=== PATIENT | female | born 1980 | race Caucasian/White ===

== ENCOUNTER 2017-01-25 14:35 | Emergency (ER) | payer BC ==
[2017-01-25 15:11] VITALS: RESP 18
[2017-01-25] MEDS ORDERED: SODIUM CHLORIDE 0.9% 1,000 ML IV STA (16:31)
--- NOTE | 2017-01-25 16:42 | ED ---
General Adult HPI - General Chief complaint: Headache Stated complaint: head pain/blurry vision Time Seen by Provider: 01/25/17 16:18 Source: patient, RN notes reviewed Mode of arrival: wheelchair Limitations: no limitations - History of Present Illness Initial comments: 36-year-old female presents emergency Department with a chief complaint of left- sided headache. Patient states she chronically gets about 2 or 3 headaches a week. Patient states today however she developed a headache more to her left side which is not typical of her headaches. Patient states left-sided left- sided face. Almost swollen. She noticed that there is blurred vision to her left eye. Patient states happened and lasted for a few hours and not slowly improving. Patient states her chest pressure she felt like her hearing was impaired. Patient states that she now is feeling better. Patient has been states she is otherwise acting normal he did not note any facial droop or any weakness she states that if her son tried to touch her face or anything with sensitivity later sound would make her headache worse. Patient denies any recent fever, chills, shortness of breath, chest pain, back pain, abdominal pain , nausea vomiting, numbness or tingling, dysuria or hematuria, constipation or diarrhea, or any other current symptoms. - Related Data Home Medications Medication Instructions Recorded Confirmed Escitalopram [Lexapro] 20 mg PO DAILY 01/25/17 01/25/17 buPROPion HCL [Wellbutrin Sr] 100 mg PO DAILY 01/25/17 01/25/17 Allergies Allergy/AdvReac Type Severity Reaction Status Date / Time No Known Allergies Allergy Verified 01/25/17 15:11 Review of Systems ROS Statement: Those systems with pertinent positive or pertinent negative responses have been documented in the HPI. ROS Other: All systems not noted in ROS Statement are negative. Past Medical History Past Medical History: No Reported History History of Any Multi-Drug Resistant Organisms: None Reported Past Surgical History: No Surgical Hx Reported Past Anesthesia/Blood Transfusion Reactions: No Reported Reaction Past Psychological History: Depression Smoking Status: Never smoker Past Alcohol Use History: None Reported Past Drug Use History: None Reported General Exam - General Exam Comments Initial Comments: General: The patient is awake and alert, in no distress, and does not appear acutely ill. Eye: Pupils are equal, round and reactive to light, extra-ocular movements are intact; there is normal conjunctiva bilaterally. No signs of icterus. Ears, nose, mouth and throat: There are moist mucous membranes. Neck: The neck is supple, there is no tenderness. Cardiovascular: There is a regular rate and rhythm. No murmur, rub or gallop is appreciated. Respiratory: Lungs are clear to auscultation, respirations are non-labored, breath sounds are equal. No wheezes, stridor, rales, or rhonchi. Gastrointestinal: Soft, non-distended, non-tender abdomen without masses or organomegaly noted. There is no rebound or guarding present. No CVA tenderness. Bowel sounds are unremarkable. Back: There is no tenderness to palpation in the midline. There is no obvious deformity. No rashes noted. Musculoskeletal: Normal ROM, no tenderness, There is no pedal edema. There is no calf tenderness or swelling. Sensation intact. Pulses equal bilaterally 2+. Neurological: CN II-XII intact, There are no obvious motor or sensory deficits. Coordination appears grossly intact. Speech is normal. Skin: Skin is warm and dry and no rashes or lesions are noted. Psychiatric: Cooperative, appropriate mood & affect, normal judgment. Limitations: no limitations Course Vital Signs 01/25/17 01/25/17 01/25/17 15:10 17:03 18:10 Temperature 98.6 F 98.8 F Pulse Rate 69 70 68 Respiratory 18 18 18 Rate Blood Pressure 145/92 168/86 144/80 O2 Sat by Pulse 99 98 98 Oximetry Medical Decision Making - Medical Decision Making 36-year-old female presents emergency Department chief complaint of headache. At this time patient's laboratory is reviewed as well as CAT scan. At this time patient's headache has resolved. This time patient's symptoms are very consistent with an. At this time we discussed continued follow-up we discussed that she needs neurologist. We did discuss return parameters and all the patient's questions. They stated the Km they are negative plan. All questions have been answered. They will be discharged. - Lab Data Result diagrams: 01/25/17 16:55 01/25/17 16:55 Lab Results 01/25/17 01/25/17 01/25/17 Range/Units 16:55 16:55 16:55 WBC 11.8 H (3.8-10.6) k/uL RBC 4.80 (3.80-5.40) m/uL Hgb 14.3 (11.4-16.0) gm/dL Hct 41.5 (34.0-46.0) % MCV 86.5 (80.0-100.0) fL MCH 29.7 (25.0-35.0) pg MCHC 34.4 (31.0-37.0) g/dL RDW 13.3 (11.5-15.5) % Plt Count 251 (150-450) k/uL Neutrophils % 58 % Lymphocytes % 33 % Monocytes % 5 % Eosinophils % 2 % Basophils % 1 % Neutrophils # 6.8 (1.3-7.7) k/uL Lymphocytes # 3.9 (1.0-4.8) k/uL Monocytes # 0.6 (0-1.0) k/uL Eosinophils # 0.2 (0-0.7) k/uL Basophils # 0.1 (0-0.2) k/uL Sodium 140 (137-145) mmol/L Potassium 4.0 (3.5-5.1) mmol/L Chloride 105 (98-107) mmol/L Carbon Dioxide 24 (22-30) mmol/L Anion Gap 11 mmol/L BUN 8 (7-17) mg/dL Creatinine 0.74 (0.52-1.04) mg/dL Est GFR (MDRD) Af Amer >60 (>60 ml/min/1.73 sqM) Est GFR (MDRD) Non-Af >60 (>60 ml/min/1.73 sqM) Glucose 82 (74-99) mg/dL Calcium 9.6 (8.4-10.2) mg/dL Total Bilirubin 0.6 (0.2-1.3) mg/dL AST 16 (14-36) U/L ALT 19 (9-52) U/L Alkaline Phosphatase 95 (38-126) U/L Total Protein 7.0 (6.3-8.2) g/dL Albumin 4.4 (3.5-5.0) g/dL Urine Color Yellow Urine Appearance Clear (Clear) Urine pH 6.0 (5.0-8.0) Ur Specific [place] 1.012 (1.001-1.035) Urine Protein Negative (Negative) Urine Glucose (UA) Negative (Negative) Urine Ketones Negative (Negative) Urine Blood Negative (Negative) Urine Nitrite Negative (Negative) Urine Bilirubin Negative (Negative) Urine Urobilinogen <2.0 (<2.0) mg/dL Ur Leukocyte Esterase Negative (Negative) Urine HCG, Qual (Not Detectd) Urine Opiates Screen Not Detected (NotDetected) Ur Oxycodone Screen Not Detected (NotDetected) Urine Methadone Screen Not Detected (NotDetected) Ur Propoxyphene Screen Not Detected (NotDetected) Ur Barbiturates Screen Not Detected (NotDetected) U Tricyclic Antidepress Not Detected (NotDetected) Ur Phencyclidine Scrn Not Detected (NotDetected) Ur Amphetamines Screen Not Detected (NotDetected) U Methamphetamines Scrn Not Detected (NotDetected) U Benzodiazepines Scrn Not Detected (NotDetected) Urine Cocaine Screen Not Detected (NotDetected) U Marijuana (THC) Screen Not Detected (NotDetected) 01/25/17 Range/Units 16:55 WBC (3.8-10.6) k/uL RBC (3.80-5.40) m/uL Hgb (11.4-16.0) gm/dL Hct (34.0-46.0) % MCV (80.0-100.0) fL MCH (25.0-35.0) pg MCHC (31.0-37.0) g/dL RDW (11.5-15.5) % Plt Count (150-450) k/uL Neutrophils % % Lymphocytes % % Monocytes % % Eosinophils % % Basophils % % Neutrophils # (1.3-7.7) k/uL Lymphocytes # (1.0-4.8) k/uL Monocytes # (0-1.0) k/uL Eosinophils # (0-0.7) k/uL Basophils # (0-0.2) k/uL Sodium (137-145) mmol/L Potassium (3.5-5.1) mmol/L Chloride (98-107) mmol/L Carbon Dioxide (22-30) mmol/L Anion Gap mmol/L BUN (7-17) mg/dL Creatinine (0.52-1.04) mg/dL Est GFR (MDRD) Af Amer (>60 ml/min/1.73 sqM) Est GFR (MDRD) Non-Af (>60 ml/min/1.73 sqM) Glucose (74-99) mg/dL Calcium (8.4-10.2) mg/dL Total Bilirubin (0.2-1.3) mg/dL AST (14-36) U/L ALT (9-52) U/L Alkaline Phosphatase (38-126) U/L Total Protein (6.3-8.2) g/dL Albumin (3.5-5.0) g/dL Urine Color Urine Appearance (Clear) Urine pH (5.0-8.0) Ur Specific [place] (1.001-1.035) Urine Protein (Negative) Urine Glucose (UA) (Negative) Urine Ketones (Negative) Urine Blood (Negative) Urine Nitrite (Negative) Urine Bilirubin (Negative) Urine Urobilinogen (<2.0) mg/dL Ur Leukocyte Esterase (Negative) Urine HCG, Qual Not Detected (Not Detectd) Urine Opiates Screen (NotDetected) Ur Oxycodone Screen (NotDetected) Urine Methadone Screen (NotDetected) Ur Propoxyphene Screen (NotDetected) Ur Barbiturates Screen (NotDetected) U Tricyclic Antidepress (NotDetected) Ur Phencyclidine Scrn (NotDetected) Ur Amphetamines Screen (NotDetected) U Methamphetamines Scrn (NotDetected) U Benzodiazepines Scrn (NotDetected) Urine Cocaine Screen (NotDetected) U Marijuana (THC) Screen (NotDetected) - Radiology Data Radiology results: report reviewed, image reviewed Disposition Clinical Impression: Headache Disposition: HOME SELF-CARE Condition: Stable Instructions: Acute Headache (ED) Additional Instructions: Please use medication as discussed. Please follow up with family doctor if symptoms have not improved over the next two days. Please return to the emergency room if your symptoms increase or worsen or for any other concerns. Referrals: Kezia Arrieta DO [Primary Care Provider] - 1-2 days Time of Disposition: 18:22
[2017-01-25 17:11] LABS: Basophils # (A) 0.1 k/uL (0-0.2); Basophils % (A) 1 %; CH 28.5; CHCM 33.1; Eosinophils # (A) 0.2 k/uL (0-0.7); Eosinophils % (A) 2 %; HCT 41.5 % (34.0-46.0); HDW 2.47; HGB 14.3 gm/dL (11.4-16.0); Luc % (Auto) 3; Lymphocytes # (A) 3.9 k/uL (1.0-4.8); Lymphocytes % (A) 33 %; MCH 29.7 pg (25.0-35.0); MCHC 34.4 g/dL (31.0-37.0); MCV 86.5 fL (80.0-100.0); Mean Platelet Volume 7.2; Monocytes # (A) 0.6 k/uL (0-1.0); Monocytes % (A) 5 %; Neutrophils # (A) 6.8 k/uL (1.3-7.7); Neutrophils % (A) 58 %; RDW 13.3 % (11.5-15.5); WBC 11.8 k/uL (3.8-10.6); WBC (Perox) 11.25
[2017-01-25 17:13] LABS: Appearance,Urine Clear (Clear); Bilirubin,Urine Negative (Negative); Glucose,Urine (UA) Negative (Negative); Ketones,Urine Negative (Negative); Leukocyte Esterase,Urine Negative (Negative); Nitrite,Urine Negative (Negative); Protein,Urine Negative (Negative); Specific Gravity,Urine 1.012 (1.001-1.035); UA Billing (MACRO vs. MICRO) CHEM; Urobilinogen,Urine <2.0 mg/dL (<2.0)
[2017-01-25 17:20] LABS: ALT 19 U/L (9-52); AST 16 U/L (14-36); Alkaline Phosphatase 95 U/L (38-126); Anion Gap 11 mmol/L; Blood Urea Nitrogen 8 mg/dL (7-17); Calcium 9.6 mg/dL (8.4-10.2); Carbon Dioxide 24 mmol/L (22-30); Chloride 105 mmol/L (98-107); Glucose 82 mg/dL (74-99); Non-African American GFR(MDRD) >60 (>60 ml/min/1.73 sqM); Sodium 140 mmol/L (137-145); Total Bilirubin 0.6 mg/dL (0.2-1.3)
--- NOTE | 2017-01-25 17:37 | CT ---
EXAMINATION TYPE: CT brain wo con DATE OF EXAM: 01/25/2017 COMPARISON: NONE HISTORY: Headache today. CT DLP: 1000.8 mGycm. Automated Exposure Control for Dose Reduction was Utilized. TECHNIQUE: CT scan of the head is performed without contrast. FINDINGS: There is no acute intracranial hemorrhage, mass effect, or midline shift identified. The ventricles and sulci are within normal limits in size. There is extensive opacification of both maxi llary sinuses. The frontal sinuses and the ethmoid sinuses are well aerated as well as the mastoid ai r cells. IMPRESSION: No acute intracranial hemorrhage, mass effect, or midline shift is seen. There is extens abigail opacification of both maxillary sinuses.
[2017-01-25] MEDS ORDERED: KETOROLAC 30 MG/ML 1 ML VIAL IVP STA (17:42)
[2017-01-25 18:11] VITALS: BP 144/80; PULSE 68; TEMP 98.8
== END 2017-01-25 19:01 | disposition home or self-care (01) ==
LOC: EC 14:35
DX: R51 Headache (principal); R22.0 Localized swelling, mass and lump, head; H53.8 Other visual disturbances; R07.89 Other chest pain; F32.9 Major depressive disorder, single episode, unspecified; Z79.899 Other long term (current) drug therapy
CPT/HCPCS: 36415; 80053; 85025; 81003; 81025; 80306; 70450; 99284; 96374; 96361 ×2; J1885

== ENCOUNTER 2017-09-21 13:03 | Inpatient (IN) | payer BC ==
[2017-09-21] MEDS ORDERED: METHYLERGONOVINE 0.2 MG/ML 1 ML AMP IM PRN (13:51)
[2017-09-21] MEDS ORDERED: OXYTOCIN 10 UNIT/ML 1 ML VIAL IM PRN (13:51)
[2017-09-21] MEDS ORDERED: CARBOPROST TROMETHAMINE 250 MCG/ML 1 ML AMP IM PRN (13:51)
[2017-09-21] MEDS ORDERED: TERBUTALINE 1 MG/ML VIAL SQ PRN (13:51)
[2017-09-21] MEDS ORDERED: LIDOCAINE 1% (PF) 10 MG/ML (30 ML SDV) SQ PRN (13:51)
[2017-09-21] MEDS: LACTATED RINGERS 1,000 ML IV SCH ×2 (13:58→15:34)
[2017-09-21] MEDS ORDERED: OXYTOCIN 20 UNITS/1000 ML NS 1,000 ML IV SCH ×2 (14:00→18:30)
[2017-09-21 14:07] VITALS: BMI 32.8
[2017-09-21 14:23] LABS: Basophils % (A) 0 %; Eosinophils # (A) 0.3 k/uL (0-0.7); Eosinophils % (A) 2 %; HCT 34.4 % (34.0-46.0); HGB 11.5 gm/dL (11.4-16.0); Lymphocytes % (A) 22 %; MCH 28.7 pg (25.0-35.0); MCHC 33.5 g/dL (31.0-37.0); MCV 85.5 fL (80.0-100.0); Mean Platelet Volume 8.7; Monocytes # (A) 0.6 k/uL (0-1.0); Monocytes % (A) 4 %; Neutrophils # (A) 9.7 k/uL (1.3-7.7); Neutrophils % (A) 70 %; Platelet Count 186 k/uL (150-450); RBC 4.02 m/uL (3.80-5.40); RDW 13.8 % (11.5-15.5); WBC 13.9 k/uL (3.8-10.6)
[2017-09-21] MEDS ORDERED: fentaNYL (PF) 50 MCG/ML 5 ML AMP ONE (15:45)
[2017-09-21] MEDS ORDERED: BUPIVACAINE (PF) 0.25% 30 ML VIAL ONE (15:45)
[2017-09-21] MEDS ORDERED: SODIUM CHLORIDE 0.9% 100 ML BAG ONE (15:45)
--- NOTE | 2017-09-21 16:56 | P.HPOB ---
History of Present Illness H&P Date: 09/21/17 Chief Complaint: 37-0/7 weeks, IUGR, spontaneous rupture of membranes The patient is a 37-year-old 4 para [birth year]/11/2003 admitted at 37-0/7 weeks as established by a 6 week ultrasound. She is admitted with documented spontaneous rupture of membranes demonstrating clear fluid. Her has been complicated on multiple levels. Firstly she was found at her 19 week ultrasound with a shortened cervical length and membranes funneling into the cervix. She was sent for maternal medicine consultation at which time she was also placed some moderate bedrest and began vaginal progesterone supplementation. She also continue to have serial growth ultrasounds and was diagnosed at approximately 27 weeks with IUGR. She began twice weekly nonstress testing as well as amniotic fluid index which remained reassuring and within normal limits. Nevertheless, serial growth ultrasound demonstrated growth continue to fall off the chart such that she was well below the 3rd percentile at approximately 35 weeks. Additional S/D ratios were added to the testing at approximately 32 weeks. They began to have elevated levels at approximately 33 weeks. Maternal medicine input recommended the patient remained unless they became absent or reversed inflow. Should they not do so, she was to be delivered at 37 weeks. She was scheduled for induction in 2 days but presented today with spontaneous rupture of membranes is noted above. On labor and delivery, all signs reassuring. Spontaneous rupture of membranes is confirmed. Group B strep status is negative. Obstetrical history: 4 para 06/11/2002 with 2 term vaginal deliveries and 135 week delivery without complication. Current statistics are listed in history of present illness. EDC of 10/12/2017 was established by a 6 week ultrasound. Laboratory workup demonstrates a blood type of B- with a negative antibody screen. RhoGAM was given at 28 weeks. Remainder of the laboratory workup was within normal limits. Early Glucola was elevated but followed by a normal three-hour glucose tolerance test. Second trimester Glucola was also elevated and follow with a normal glucose tolerance test. Group B strep status is negative. Gynecologic history: Unremarkable with no history of any infections to include STDs. Review of Systems Review of systems is confined to history of present illness. Past Medical History Past Medical History: No Reported History History of Any Multi-Drug Resistant Organisms: None Reported Past Surgical History: No Surgical Hx Reported Past Anesthesia/Blood Transfusion Reactions: No Reported Reaction Past Psychological History: Depression Smoking Status: Never smoker Past Alcohol Use History: None Reported Past Drug Use History: None Reported - Past Family History Mother Family Medical History: No Reported History Medications and Allergies Home Medications Medication Instructions Recorded Confirmed Type Escitalopram [Lexapro] 30 mg PO DAILY 01/25/17 09/21/17 History Pnv No.95/Ferrous Fum/Folic AC 1 each PO DAILY 09/21/17 09/21/17 History [ Multivitamin Tablet] Allergies Allergy/AdvReac Type Severity Reaction Status Date / Time No Known Allergies Allergy Verified 09/21/17 13:50 Exam - Vital Signs Vital signs: Vital Signs Temp Pulse Resp BP Pulse Ox 09/21/17 14:20 97.7 F 92 16 137/92 98 09/21/17 13:59 96.6 F L 80 18 129/66 96 Intake and Output 09/21/17 09/21/17 09/21/17 06:59 14:59 22:59 Other: # Voids 1 Weight 92.079 kg 91.172 kg In general, this is a well-developed, well-nourished white female in no acute distress. Her heart has a regular rhythm and rate without murmur. Her lungs are clear to auscultation bilaterally in all posada. Her abdomen is gravid, nondistended, has normal active bowel sounds, is soft, nontender, and without any palpable masses aside from uterine fundus. Her extremities are without any cyanosis, clubbing, or significant edema and are nontender to palpation bilaterally. Digital cervical examination demonstrates her cervix to be 4+ centimeters dilated, 80% effaced, vertex in presentation at -2 station. Results Result Diagrams: 09/21/17 13:59 Abnormal Lab Results - Last 24 Hours (Table) 09/21/17 Range/Units 13:59 WBC 13.9 H (3.8-10.6) k/uL Neutrophils # 9.7 H (1.3-7.7) k/uL Assessment and Plan (1) IUGR (intrauterine growth restriction) Current Visit: Yes Status: Acute Code(s): FID1558 - SNOMED Code(s): 84995223 (2) AMA (advanced maternal age) multigravida 35+ Current Visit: Yes Status: Acute Code(s): O09.529 - SUPERVISION OF ELDERLY MULTIGRAVIDA, UNSPECIFIED TRIMESTER SNOMED Code(s): 721088078 (3) Rh negative status during Current Visit: Yes Status: Acute Code(s): O09.899 - SUPERVISION OF OTHER HIGH RISK PREGNANCIES, UNSP TRIMESTER; Z67.91 - UNSPECIFIED BLOOD TYPE, RH NEGATIVE SNOMED Code(s): 254586077 (4) Spontaneous rupture of amniotic membranes Current Visit: No Status: Acute Code(s): QHP5517 - SNOMED Code(s): 027435096 Plan: The patient has been admitted for active management of labor. As noted above, she was to be induced in 2 days' time presented instead with spontaneous rupture of membranes. Pitocin augmentation has been added and an epidural catheter has been placed for analgesia. She will continue to have close maternal and surveillance and expectant management will be practiced.
[2017-09-21] MEDS ORDERED: SIMETHICONE 80 MG CHEWABLE PO PRN (18:24)
[2017-09-21] MEDS ORDERED: ACETAMINOPHEN TAB 325 MG TAB PO PRN (18:24)
[2017-09-21] MEDS ORDERED: BENZOCAINE/MENTHOL SPRAY 1 GM/SPRAY AEROSOL TOPICAL PRN (18:24)
[2017-09-21] MEDS ORDERED: diphenhydrAMINE 25 MG CAP PO PRN (18:24)
[2017-09-21] MEDS ORDERED: LANOLIN CREAM 5 GM TUBE TOPICAL PRN (18:24)
[2017-09-21] MEDS ORDERED: HYDROcodone/APAP 5-325MG 1 EACH TAB PO PRN (18:24)
[2017-09-21] MEDS ORDERED: diphenhydrAMINE 50 MG/ML 1 ML VIAL IVP PRN ×2 (18:24)
[2017-09-21] MEDS ORDERED: diphenhydrAMINE 50 MG CAP PO PRN (18:24)
[2017-09-21] MEDS ORDERED: WITCH HAZEL 1 EACH MED..PAD TOPICAL PRN (18:24)
[2017-09-21] MEDS ORDERED: HYDROCORTISONE 2.5% RECTAL CREAM 30 GM TUBE RECTAL PRN (18:24)
[2017-09-21] MEDS ORDERED: ZOLPIDEM 5 MG TAB PO PRN (18:24)
--- NOTE | 2017-09-21 18:29 | P.PROBDLV ---
Vaginal Delivery Note - . Vaginal Delivery Note: The patient is a 37-year-old 4 para 06/11/2003 admitted at 37-0/7 weeks by good dating parameters. She is admitted with documented spontaneous rupture of membranes demonstrating clear fluid. Her has been complicated by early shortening of the cervix with funneling of membranes. She was then later in the second trimester diagnosed with intrauterine growth restriction which continued to be progressive throughout the . testing remained reassuring throughout though she did have borderline high S/D ratios. She also fell into the category of advanced maternal age and declined any testing. She did have maternal medicine consultation throughout the and plan was for delivery on or after 37 weeks. She was scheduled for induction in 2 days time. Group B strep status is negative. As noted above, she presented with documented spontaneous rupture of membranes. She had Pitocin augmentation started and shortly thereafter had an epidural catheter placed for analgesia. She made rapid progress through the active phase of labor to complete and pushed over the course of 1 contraction to a normal spontaneous vaginal delivery of a viable 4 lbs. 11 oz. baby girl with Apgars of 8 at 1 minute and 9 at 5 minutes delivered in the direct occiput anterior position. cord blood was collected for evaluation for the necessity of RhoGAM prior to discharge. The placenta was delivered spontaneously, intact, and grossly normal although it was very small. It also had a grossly normal, centrally inserted three-vessel cord. There was a very small first-degree midline perineal laceration over the site of a previous laceration which was repaired with a single [id number] stitch of 3-0 chromic catgut. Estimated blood loss for the entire case was approximately 100 mL. There were no complications. All sponge, instrument, and needle counts were correct. Both mother and are resting comfortably in recovery.
[2017-09-21] MEDS ORDERED: BUPIVACAINE (PF) 0.25% 25 ML, fentaNYL (PF) 200 MCG in SODIUM CHLORIDE 0.9% 71 ML EPIDURAL ONE (19:39)
[2017-09-21] MEDS: SENNOSIDES-DOCUSATE SODIUM 1 EACH TAB PO SCH (22:56)
[2017-09-22] MEDS: IBUPROFEN 600 MG TAB PO PRN ×2 (08:14→20:40)
--- NOTE | 2017-09-22 11:00 | P.DS ---
Providers Date of admission: 09/21/17 13:37 Expected date of discharge: 09/22/17 Attending physician: Liam Roper - Discharge Diagnosis(es) (1) IUGR (intrauterine growth restriction) Current Visit: Yes Status: Acute (2) AMA (advanced maternal age) multigravida 35+ Current Visit: Yes Status: Acute (3) Rh negative status during Current Visit: Yes Status: Acute (4) Spontaneous rupture of amniotic membranes Current Visit: Yes Status: Acute (5) Normal spontaneous vaginal delivery Current Visit: Yes Status: Acute Hospital Course: The patient is a 37-year-old 4 para 2013 admitted at 37-0/7 weeks by good dating parameters. She is admitted with document spontaneous rupture of membranes demonstrating clear fluid. Her was complicated by a shortened cervical length and funneling amniotic membranes first discovered at 19 weeks of age. This prompted maternal medicine consultation which time she was placed on vaginal progesterone supplementation. As the progressed, she then developed intrauterine growth restriction which was progressive in nature though testing throughout the second and third trimester remained reassuring. Ultimately, the decision was made to deliver her at 37 weeks and she was scheduled for induction of labor 2 days following her presentation. As noted above, she presented with documented spontaneous rupture of membranes. She had Pitocin augmentation started and an epidural catheter placed for analgesia. She made rapid progress through the active phase of labor to complete and then pushed once to a normal spontaneous vaginal delivery of a viable 4 lbs. 11 oz. baby girl with Apgars of 8 at 1 minute and 9 at 5 minutes. Her course was unremarkable vital signs remaining stable and her temperature was afebrile throughout. She was deemed stable for discharge by day 1 to follow-up in the office in 6 weeks' time routinely. Discharge instructions included calling for any significantly increased bleeding or foul-smelling lochia, significantly increased fever or abdominal pain, perineal complaints, breast complaints, or anything else that concerned her. She was additionally instructed to have nothing in the vagina for at least 6 weeks time to include intercourse. She understood her instructions and agrees to follow up as noted above. Discharge medications included continued vitamins as she has opted to breast-feed. She was otherwise to use [id number] analgesic pain medications as needed. Maternal blood type is B- and cord blood was sent for evaluation for the necessity of RhoGAM prior to discharge. Rubella status is immune. Procedures: #1. Pitocin augmentation #2. Epidural analgesia #3. Normal spontaneous vaginal delivery #4. Repair of small perineal laceration Patient Condition at Discharge: Good Plan - Discharge Summary New Discharge Prescriptions: No Action Escitalopram [Lexapro] 30 mg PO DAILY Pnv No.95/Ferrous Fum/Folic AC [ Multivitamin Tablet] 1 each PO DAILY Discharge Medication List Escitalopram [Lexapro] 30 mg PO DAILY 01/25/17 [History] Pnv No.95/Ferrous Fum/Folic AC [ Multivitamin Tablet] 1 each PO DAILY [History] Follow up Appointment(s)/Referral(s): Liam Roper MD [STAFF PHYSICIAN] - 6 Weeks Discharge Disposition: HOME SELF-CARE
[2017-09-22] MEDS: SENNOSIDES-DOCUSATE SODIUM 1 EACH TAB PO SCH ×2 (20:41)
[2017-09-23 00:30] VITALS: RESP 16
[2017-09-23] MEDS: SENNOSIDES-DOCUSATE SODIUM 1 EACH TAB PO SCH (09:14)
[2017-09-23 11:10] VITALS: BP 144/84; PULSE 80; TEMP 97.7
== END 2017-09-23 11:40 | disposition home or self-care (01) | DRG 775 ==
LOC: FBPOP 13:03 → 4FBP 13:37
PROVIDERS: ADMIT Obstetrics & Gynecology; ATTEND Obstetrics & Gynecology
PROC: 00HU33Z Insertion of Infusion Device into Spinal Canal, Percutaneous Approach (ICD-10-PCS; principal; 2017-09-21)
PROC: 10E0XZZ Delivery of Products of Conception, External Approach (ICD-10-PCS; 2017-09-21)
PROC: 3E0R3NZ Introduction of Analgesics, Hypnotics, Sedatives into Spinal Canal, Percutaneous Approach (ICD-10-PCS; 2017-09-21)
PROC: 0HQ9XZZ Repair Perineum Skin, External Approach (ICD-10-PCS; 2017-09-21)
DX: O36.5930 Maternal care for other known or suspected poor fetal growth, third trimester, not applicable or unspecified (principal); O70.0 First degree perineal laceration during delivery; Z37.0 Single live birth; Z3A.37 37 weeks gestation of pregnancy
CPT/HCPCS: 85025; 88307

== ENCOUNTER 2019-02-03 17:48 | Emergency (ER) | payer BC ==
[2019-02-03 17:53] VITALS: BP 156/89; PULSE 83; RESP 18; TEMP 98
[2019-02-03] MEDS ORDERED: DEXAMETHASONE SOD PHOSPHATE 10 MG/ML 1 ML VIAL IM STA (18:01)
--- NOTE | 2019-02-03 18:05 | ED ---
General Adult HPI - General Chief complaint: Skin/Abscess/Foreign Body Stated complaint: Bee sting, allergic reaction Time Seen by Provider: 02/03/19 17:57 Source: patient Mode of arrival: ambulatory Limitations: no limitations - History of Present Illness Initial comments: Patient is a 38-year-old female presenting to emergency department with a chief complaint of an insect bite. Patient reports she was outside watching soccer today when she put on her jacket and felt a sting near the right axilla. Patient reports immediately she noticed mild face swelling, chest repetitions but no shortness of breath. Patient reports her ears are feeling like there is "cotton" in them. Patient denies any dysphagia or drooling. Patient denies any chest tightness or dyspnea. Patient is not complaining of any tracheal irritation. Patient denies taking medication to alleviate the symptoms. Patient reports she previously had an anaphylactic reaction to bee sting in the swelling does not feel like it. - Related Data Home Medications Medication Instructions Recorded Confirmed Escitalopram [Lexapro] 30 mg PO DAILY 01/25/17 09/21/17 Pnv No.95/Ferrous Fum/Folic AC 1 each PO DAILY 09/21/17 09/21/17 [ Multivitamin Tablet] Previous Rx's Medication Instructions Recorded predniSONE 50 mg PO DAILY #5 tab 02/03/19 Allergies Allergy/AdvReac Type Severity Reaction Status Date / Time bee venom protein (honey bee) Allergy Swelling Verified 02/03/19 17:53 Review of Systems ROS Statement: Those systems with pertinent positive or pertinent negative responses have been documented in the HPI. ROS Other: All systems not noted in ROS Statement are negative. Past Medical History Past Medical History: No Reported History History of Any Multi-Drug Resistant Organisms: None Reported Past Surgical History: No Surgical Hx Reported Past Anesthesia/Blood Transfusion Reactions: No Reported Reaction Past Psychological History: Depression Smoking Status: Never smoker Past Alcohol Use History: None Reported Past Drug Use History: None Reported - Past Family History Mother Family Medical History: No Reported History General Exam Limitations: no limitations General appearance: alert, in no apparent distress Head exam: Present: atraumatic, normocephalic, normal inspection Eye exam: Present: normal appearance, PERRL, EOMI Pupils: Present: normal accommodation ENT exam: Present: normal exam, normal oropharynx (No tonsillar enlargement), mucous membranes moist, TM's normal bilaterally, normal external ear exam Neck exam: Present: normal inspection, full ROM Respiratory exam: Present: normal lung sounds bilaterally. Absent: respiratory distress, wheezes, rales Cardiovascular Exam: Present: regular rate, normal rhythm, normal heart sounds Extremities exam: Present: normal inspection (Mild skin evaluation with surrounding erythema near the right exam.), full ROM, normal capillary refill Back exam: Present: normal inspection, full ROM Neurological exam: Present: alert, oriented X3 Psychiatric exam: Present: normal affect, normal mood Skin exam: Present: warm, intact, normal color Course Vital Signs 02/03/19 02/03/19 17:50 18:51 Temperature 98.0 F 98.0 F Pulse Rate 83 83 Respiratory 18 18 Rate Blood Pressure 156/89 156/89 O2 Sat by Pulse 99 99 Oximetry Medical Decision Making - Medical Decision Making Patient is a 38-year-old female presents emergency Department with a chief complaint of a bug bite. Patient has no dysphagia or dyspnea. Patient is only complaining of mild angioedema. Patient initially felt chest palpitations but that could be due to a panic attack. She was given Decadron. I will evaluation patient reports that his symptoms are decreasing. Patient also reports mild resolution in the facial angioedema. She will be discharged with a 5 day course of prednisone. Strict return parameters were thoroughly discussed with patient was understanding and agreeable. Case discussed physician. Disposition Clinical Impression: Insect sting Disposition: HOME SELF-CARE Condition: Stable Additional Instructions: Please see prescribe medication as directed. Please return to emergency department if symptoms worsen. Prescriptions: predniSONE 50 mg PO DAILY #5 tab Is patient prescribed a controlled substance at d/c from ED?: No Referrals: Kezia Arrieta DO [Primary Care Provider] - 1-2 days Time of Disposition: 18:36
== END 2019-02-03 18:56 | disposition home or self-care (01) ==
LOC: EC 17:48
DX: T78.3XXA Angioneurotic edema, initial encounter (principal); F32.9 Major depressive disorder, single episode, unspecified; Z79.899 Other long term (current) drug therapy; Z91.030 Bee allergy status; W57.XXXA Bitten or stung by nonvenomous insect and other nonvenomous arthropods, initial encounter; Y92.89 Other specified places as the place of occurrence of the external cause
CPT/HCPCS: 99283; 96372; J1100

== ENCOUNTER 2020-12-18 11:48 | Observation (INO) | payer BC ==
--- NOTE | 2020-12-18 12:01 | ED ---
General Adult HPI <Prasanth Leyva - Last Filed: 12/18/20 12:05> - General Source: patient, RN notes reviewed, old records reviewed <Salbador Gallo - Last Filed: 12/18/20 15:47> - General Stated complaint: head pain, swelling Time Seen by Provider: 12/18/20 12:00 - History of Present Illness Initial comments: Patient was seen for advanced triage purposes 1200: 40-year-old female without any significant past medical history presents to the emergency room for a chief complaint of headache. Patient states she is sitting on the couch and seemed to get a headache. It started about an hour and 15 minutes ago. States that for the past month she has had headaches off-and-on. Patient admits to nausea, denies vomiting. Patient has no other complaints at this time including shortness of breath, chest pain, abdominal pain, nausea, visual changes. (Prasanth Leyva) I went into evaluate the patient and her chief complaint was headache. Patient states she's had a headache every day for approximately a month is at the base of her skull. Patient states she had a headache today and took an Aleve and about 15 minutes after she took an Aleve she started having this much more intense headache at the base of her skull which radiated to the front of her head she states it was bilateral and she felt a severe pressure in her head. Patient states she felt like she had pressure on her eyeballs in ears. Patient denies any actual swelling. Patient denies any numbness or weakness. Patient denies any visual disturbance. Patient denies any vomiting but states she is nauseated. Patient denies shortness of breath difficulty breathing or chest p ain. Patient denies any fever chills or cough. Patient states she does have some neck tenderness but she went hiking on Thursday and carried her child on her shoulders. She points to the trapezius muscles as being extremely tender to touch. Patient states this headache she has had for a month does wax and wane throughout the day. (Salbador Gallo) - Related Data Home Medications Medication Instructions Recorded Confirmed Ergocalciferol [Vitamin D2 (1250 50,000 units PO MO 12/18/20 12/18/20 Mcg = 24450 Iu)] Escitalopram Oxalate [Lexapro] 10 mg PO DAILY 12/18/20 12/18/20 Glucosamine/Chondr Kline A Sod [Osteo 2 tab PO DAILY 12/18/20 12/18/20 Bi-Flex Caplet] Naproxen Sodium [Aleve] 220 mg PO DAILY PRN 12/18/20 12/18/20 Allergies Allergy/AdvReac Type Severity Reaction Status Date / Time bee venom protein (honey bee) Allergy Swelling Verified 12/18/20 13:49 Review of Systems ROS Other: All systems not noted in ROS Statement are negative. <Prasanth Leyva - Last Filed: 12/18/20 12:05> ROS Other: All systems not noted in ROS Statement are negative. <Salbador Gallo - Last Filed: 12/18/20 15:47> ROS Statement: Those systems with pertinent positive or pertinent negative responses have been documented in the HPI. Past Medical History Past Medical History: No Reported History History of Any Multi-Drug Resistant Organisms: None Reported Past Surgical History: No Surgical Hx Reported Past Anesthesia/Blood Transfusion Reactions: No Reported Reaction Past Psychological History: Depression Past Alcohol Use History: None Reported Past Drug Use History: None Reported - Past Family History Mother Family Medical History: No Reported History <Prasanth Leyva - Last Filed: 12/18/20 12:05> General Exam <Salbador Gallo - Last Filed: 12/18/20 15:47> - General Exam Comments Initial Comments: GENERAL: Patient is well-developed and well-nourished. Patient is nontoxic and well- hydrated and is in mild distress. ENT: Neck is soft and supple. No significant lymphadenopathy is noted. Oropharynx is clear. Moist mucous membranes. Neck has full range of motion without eliciting any pain. Patient has some tenderness along the trapezius muscle up into the base of skull. Patient has no meningeal symptoms. EYES: The sclera were anicteric and conjunctiva were pink and moist. Extraocular movements were intact and pupils were equal round and reactive to light. Eyelids were unremarkable. PULMONARY: Unlabored respirations. Good breath sounds bilaterally. No audible rales rhonchi or wheezing was noted. CARDIOVASCULAR: There is a regular rate and rhythm without any murmurs gallops or rubs. ABDOMEN: Soft and nontender with normal bowel sounds. SKIN: Skin is clear with no lesions or rashes and otherwise unremarkable. NEUROLOGIC: Patient is alert and oriented x3. Cranial nerves II through XII are grossly intact. Motor and sensory are also intact. Normal speech, volume and content. Symmetrical smile. MUSCULOSKELETAL: Normal extremities with adequate strength and full range of motion. LYMPHATICS: No significant lymphadenopathy is noted PSYCHIATRIC: Normal psychiatric evaluation. (Salbador Gallo) Course Vital Signs 12/18/20 12/18/20 12/18/20 12:00 12:38 13:31 Temperature 97.9 F 98.2 F Pulse Rate 81 74 72 Respiratory 20 16 16 Rate Blood Pressure 167/115 167/100 163/83 O2 Sat by Pulse 99 95 97 Oximetry 12/18/20 15:00 Temperature Pulse Rate 73 Respiratory 18 Rate Blood Pressure 137/45 O2 Sat by Pulse 97 Oximetry Medical Decision Making - Lab Data Result diagrams: 12/18/20 12:53 12/18/20 12:53 <Salbador Gallo - Last Filed: 12/18/20 15:47> - Medical Decision Making Computed tomography scan of the brain shows no acute abnormality. Patient's repeat blood pressure was 165/100 I went back in the room multiple times patient stated that the medicines barely touched her pain. Patient continues to say her pain is relatively significant. Repeat blood pressure was significantly decreased. I spoke with Dr. Welch wanted to admit the patient to the patient I consulted neurology. Patient received some Toradol Benadryl and Reglan as well as Valium and Dilaudid. Then gave the patient 2 g of magnesium (Salbador Gallo) - Lab Data Lab Results 12/18/20 12/18/20 Range/Units 12:53 12:53 WBC 10.2 (3.8-10.6) k/uL RBC 5.04 (3.80-5.40) m/uL Hgb 14.9 (11.4-16.0) gm/dL Hct 45.4 (34.0-46.0) % MCV 90.2 (80.0-100.0) fL MCH 29.5 (25.0-35.0) pg MCHC 32.7 (31.0-37.0) g/dL RDW 13.8 (11.5-15.5) % Plt Count 268 (150-450) k/uL MPV 8.3 Neutrophils % 64 % Lymphocytes % 27 % Monocytes % 5 % Eosinophils % 2 % Basophils % 1 % Neutrophils # 6.5 (1.3-7.7) k/uL Lymphocytes # 2.7 (1.0-4.8) k/uL Monocytes # 0.5 (0-1.0) k/uL Eosinophils # 0.2 (0-0.7) k/uL Basophils # 0.1 (0-0.2) k/uL Sodium 138 (137-145) mmol/L Potassium 4.3 (3.5-5.1) mmol/L Chloride 106 (98-107) mmol/L Carbon Dioxide 25 (22-30) mmol/L Anion Gap 7 mmol/L BUN 7 (7-17) mg/dL Creatinine 0.64 (0.52-1.04) mg/dL Est GFR (CKD-EPI)AfAm >90 (>60 ml/min/1.73 sqM) Est GFR (CKD-EPI)NonAf >90 (>60 ml/min/1.73 sqM) Glucose 88 (74-99) mg/dL Calcium 10.0 (8.4-10.2) mg/dL Total Bilirubin 0.5 (0.2-1.3) mg/dL AST 18 (14-36) U/L ALT 10 (4-34) U/L Alkaline Phosphatase 85 (38-126) U/L Total Protein 6.5 (6.3-8.2) g/dL Albumin 4.3 (3.5-5.0) g/dL Disposition <Prasanth Leyva - Last Filed: 12/18/20 12:05> Time of Disposition: 15:47 <Salbador Gallo - Last Filed: 12/18/20 15:47> Clinical Impression: Headache in back of head Disposition: ADMITTED IP TO THIS HOSP Referrals: Kezia Arrieta DO [Primary Care Provider] - 1-2 days
[2020-12-18] MEDS ORDERED: diphenhydrAMINE 50 MG/ML 1 ML VIAL IVP STA (12:31)
[2020-12-18] MEDS ORDERED: METOCLOPRAMIDE 5 MG/ML 2 ML VIAL IVP STA (12:32)
[2020-12-18] MEDS ORDERED: SODIUM CHLORIDE 0.9% 1,000 ML IV ONE (12:32)
[2020-12-18 13:38] LABS: Basophils # (A) 0.1 k/uL (0-0.2); Basophils % (A) 1 %; Eosinophils # (A) 0.2 k/uL (0-0.7); Eosinophils % (A) 2 %; HCT 45.4 % (34.0-46.0); HGB 14.9 gm/dL (11.4-16.0); Lymphocytes # (A) 2.7 k/uL (1.0-4.8); Lymphocytes % (A) 27 %; MCH 29.5 pg (25.0-35.0); MCHC 32.7 g/dL (31.0-37.0); MCV 90.2 fL (80.0-100.0); Mean Platelet Volume 8.3; Monocytes # (A) 0.5 k/uL (0-1.0); Monocytes % (A) 5 %; Neutrophils # (A) 6.5 k/uL (1.3-7.7); Neutrophils % (A) 64 %; Platelet Count 268 k/uL (150-450); RBC 5.04 m/uL (3.80-5.40); RDW 13.8 % (11.5-15.5); WBC 10.2 k/uL (3.8-10.6)
[2020-12-18 13:51] LABS: ALT 10 U/L (4-34); AST 18 U/L (14-36); African American GFR (CKD) >90 (>60 ml/min/1.73 sqM); Albumin 4.3 g/dL (3.5-5.0); Alkaline Phosphatase 85 U/L (38-126); Anion Gap 7 mmol/L; Blood Urea Nitrogen 7 mg/dL (7-17); Carbon Dioxide 25 mmol/L (22-30); Chloride 106 mmol/L (98-107); Glucose 88 mg/dL (74-99); Non-African American GFR(CKD) >90 (>60 ml/min/1.73 sqM); Potassium 4.3 mmol/L (3.5-5.1); Sodium 138 mmol/L (137-145); Total Bilirubin 0.5 mg/dL (0.2-1.3); Total Protein 6.5 g/dL (6.3-8.2)
[2020-12-18] MEDS ORDERED: KETOROLAC 15 MG/ML 1 ML VIAL IVP STA (13:54)
[2020-12-18] MEDS ORDERED: DIAZEPAM 5 MG/ML 2 ML INJ IVP STA ×2 (13:54→13:56)
[2020-12-18] MEDS ORDERED: HYDROmorphone 0.5 MG/0.5 ML SYRINGE IVP STA (15:13)
--- NOTE | 2020-12-18 15:27 | CT ---
EXAMINATION TYPE: CT brain wo con DATE OF EXAM: 12/18/2020 COMPARISON: 01/25/2017 INDICATION: Headache DLP: 1086.4 mGycm, Automated exposure control for dose reduction was used. CONTRAST: None CT of the brain is performed utilizing 3 mm thick sections through the posterior fossa and 3 mm thick sections through the remaining calvarium. Study is performed within 24 hours of arrival to the hosp [facility]. No abnormal hyperdensity is present to suggest an acute intracranial hemorrhage. No mass lesion is evident. No acute infarcts are evident. Ventricles and sulci are appropriate for the patient age. Paranasal sinuses and mastoid air cells within the [id number] are clear. Previous sinusitis has re solved. IMPRESSIONS: 1. No acute intracranial process.
[2020-12-18] MEDS: MAGNESIUM SULFATE-D5W PMX 1 GM in DEXTROSE/WATER 1 100ML.BAG IVPB SCH ×2 (16:24→17:37)
[2020-12-18] MEDS: SODIUM CHLORIDE 0.9% 1,000 ML IV ONE ×2 (16:25→22:16)
[2020-12-18] MEDS ORDERED: MAGNESIUM SULFATE-D5W PMX 1 GM in DEXTROSE/WATER 1 100ML.BAG IVPB ONE (22:17)
[2020-12-18] MEDS: BUTA/APAP/CAF/COD 50-325-40-30 CAP PO PRN (23:34)
[2020-12-18] MEDS: AMITRIPTYLINE HCL 50 MG TAB PO SCH (23:38)
[2020-12-19] MEDS: ESCITALOPRAM 10 MG TAB PO SCH (08:17)
[2020-12-19] MEDS: BUTA/APAP/CAF/COD 50-325-40-30 CAP PO PRN (08:22)
[2020-12-19] MEDS: methylPREDNISolone SOD SUCCI 125 MG/2 ML VIAL IV SCH ×3 (12:44→23:27)
--- NOTE | 2020-12-19 16:27 | P.CNNES ---
History of Present Illness Consult date: 12/19/20 Requesting physician: Salbador Gallo Reason for Consult: Acute headache History of Present Illness: Patient is a 40-year-old female came to the hospital yesterday at 11:48 AM for acute onset headache. Patient states that she developed a daily headache involving occipital region extending to the frontal region for the last 1 month. The headache was occurring every day on waking up which she rated 3-5/10. At around noon the headache would go away but reappears at around 3-4 PM and stays until she goes to bed at night. This pattern of headache was consistently occurring for the last 1 month. Patient states that yesterday at 10:30 AM, she was sitting in the couch, watching TV when all of a sudden she developed intense pain involving the base of the skull, that extended to the forehead and then radiated slightly to the sides. She rated her headache 9/10. She has never experienced such intense pain. She felt fuzzy in the ears as if water is in the ear, couldn't hear well. She felt pressure in the eyes as if the eyes will pop. Also had blurred vision, which lasted for half an hour. She also felt ev erything was swelling. Her sister brought her to the hospital. She felt slightly nauseous but no vomiting. She was feeling light and noise sensitive. Patient denies any history of head trauma. Denies fever or chills. Patient states the headache has improved, rates 7/10, but not gone. Patient's vital signs on arrival blood pressure 167/115, temperature 97.9, pulse rate 81. Patient's blood pressure has now improved. Blood test shows normal CBC, CMP, ESR. CT head showed no acute intracranial process. The paranasal sinuses and external auditory canals are clear. Patient had a computed tomography scan of head performed previously on 01/25/2017 for headache, which had revealed extensive opacification of both maxillary sinuses. Patient states that prior to this current headache for the month as mentioned, she used to have occasional headache about 3-4 times a month, which goes away after taking OTC medication within couple hours. Patient denies any history of migraines. Patient takes naproxen, glucosamine and chondroitin, Lexapro 10 mg and vitamin D 2. Patient does not take any control pills. Patient so far has received Valium 5 mg, 3 mg, Benadryl 50 mg IV push, Dilaudid 0.5 mg IV push once, Toradol 15 mg IV push, magnesium sulfate 1 g, Reglan, Fioricet. The Mercedes icet decreases the headache, but does not take it away. Patient denies any history of hypertension. Does not take any hormones. Patient was light smoker, smoked 1 pack every 3 days, quit years ago. Denies any alcohol. Patient does drink one pot of coffee per day. Patient denies any family history of migraines or any family history of cerebral aneurysms. Review of Systems As above in detail. All other 14 point of review systems reviewed and noncontributory. Past Medical History Past Medical History: No Reported History History of Any Multi-Drug Resistant Organisms: None Reported Past Surgical History: No Surgical Hx Reported Past Anesthesia/Blood Transfusion Reactions: No Reported Reaction Past Psychological History: Anxiety, Depression Smoking Status: Current every day smoker Past Alcohol Use History: Rare Past Drug Use History: None Reported - Past Family History Mother Family Medical History: Hypertension Medications and Allergies Home Medications Medication Instructions Recorded Confirmed Type Ergocalciferol [Vitamin D2 (1250 50,000 units PO MO 12/18/20 12/18/20 History Mcg = 76222 Iu)] Escitalopram Oxalate [Lexapro] 10 mg PO DAILY 12/18/20 12/18/20 History Glucosamine/Chondr Kline A Sod [Osteo 2 tab PO DAILY 12/18/20 12/18/20 History Bi-Flex Caplet] Naproxen Sodium [Aleve] 220 mg PO DAILY PRN 12/18/20 12/18/20 History Allergies Allergy/AdvReac Type Severity Reaction Status Date / Time bee venom protein (honey bee) Allergy Swelling Verified 12/18/20 13:49 Physical Examination - Vital Signs Vital Signs: Vital Signs Temp Pulse Pulse Resp BP BP Pulse Ox 12/19/20 08:00 72 16 12/19/20 07:00 97.7 F 72 16 138/88 94 L 12/19/20 01:49 98.7 F 83 16 148/85 92 L 12/18/20 20:41 99.0 F 83 16 151/89 97 12/18/20 16:08 77 16 142/63 96 12/18/20 15:00 73 18 137/45 97 12/18/20 13:31 98.2 F 72 16 163/83 97 12/18/20 12:38 74 16 167/100 95 12/18/20 12:00 97.9 F 81 20 167/115 99 Intake and Output 12/18/20 12/19/20 12/19/20 22:59 06:59 14:59 Intake Total 75 525 Balance 75 525 Intake: IV 75 525 Sodium Chloride 0.9% 1, 75 525 000 ml @ 75 mls/hr IV . [id number] ONE Rx#:[id number] Other: Voiding Method Toilet # Voids 1 0 Weight 90.718 kg Patient is middle aged female, in no acute distress. Patient is alert awake oriented to time place and person. Speech and language functions are normal. No aphasia or dysarthria. Attention, concentration and fund of knowledge is adequate. On cranial examination, pupils are equal, round and reacting to light, visual posada are full on confrontation, extraocular muscles are intact with no nystagmus. Face is symmetric, tongue protrudes to the midline. Palatal elevation and sensation normal, hearing and shoulder shrug normal, facial sensation normal. Neck is supple. On muscle strength testing, there is no pronator drift and the strength is normal in arms and legs distally and proximally. Deep tendon reflexes are 2 in the upper limbs, 3 at the knees, 2 ankles and plantars are withdrawal versus Bilaterally. Sensory to touch is equal with no neglect. Cerebellar function showed no ataxia for [id number] testing. No dysdiadochokinesia. Tone and bulk of muscles normal. Gait normal. On general examination, there is no carotid bruit or murmur, S1-S2 audible. Abdomen is soft nontender. Chest is clear. Peripheral pulses are present. No edema. No rash. Results - Laboratory Findings CBC and BMP: 12/18/20 12:53 12/18/20 12:53 Assessment and Plan Assessment: * New onset, mild intensity, daily occipital headache (3-5/10) of one month dura tion, unclear etiology. Patient has developed an acute worsening of the occipital to frontal headache (9/10) yesterday morning, appears like thunderclap-type headache, unclear etiology. CT head and current neurological examination is normal. * Elevated blood pressure readings. No previous diagnosis of hypertension. Uncertain if headache is related to newly diagnosed hypertension. * Excessive caffeine intake (1 pot per day), ?which may be contributing. Plan: * Patient will undergo MRI of the brain with and without contrast, and MRA of head to rule out cerebral aneurysm. * I discussed with patient about lumbar puncture, but she wants to hold off on it until MRI has been completed. Patient is afebrile, normal white cells and normal ESR. * We will try Solu-Medrol 125 mg IV push every 6 hours to see if it resolves the headache. Patient already has failed Dilaudid, Fioricet and other migraine cocktails. * We will follow.
[2020-12-19] MEDS: AMITRIPTYLINE HCL 50 MG TAB PO SCH (19:32)
--- NOTE | 2020-12-19 22:43 | P.HPIM ---
History of Present Illness H&P Date: 12/19/20 Chief Complaint: headache Dunia Whitaker is a 40 yo F with PMH of anxiety who presented to the ED with a 1 month history of daily headaches that have been acutely worsened over the past few days. She complains she woke with a severe headache that wrapped from the back of her head around to the front, due to the pain she came to the hospital. She complains of similar headaches in the last few weeks that have not been as intense and have fluctuated throughout the day. she does drink caffeine daily. On presentaiton she was hypertensive, labs unremarkable, CT head negative. Review of Systems All systems: negative Constitutional: Denies chills, Denies fever Eyes: denies blurred vision, denies pain Ears, nose, mouth and throat: Denies headache, Denies sore throat Cardiovascular: Denies chest pain, Denies shortness of breath Respiratory: Denies cough Gastrointestinal: Denies abdominal pain, Denies diarrhea, Denies nausea, Denies vomiting Genitourinary: Denies dysuria, Denies hematuria Musculoskeletal: Denies myalgias Integumentary: Denies pruritus, Denies rash Neurological: Reports headaches, Denies numbness, Denies weakness Psychiatric: Denies anxiety, Denies depression Endocrine: Denies fatigue, Denies weight change Past Medical History Past Medical History: No Reported History History of Any Multi-Drug Resistant Organisms: None Reported Past Surgical History: No Surgical Hx Reported Past Anesthesia/Blood Transfusion Reactions: No Reported Reaction Past Psychological History: Anxiety, Depression Smoking Status: Current every day smoker Past Alcohol Use History: Rare Past Drug Use History: None Reported - Past Family History Mother Family Medical History: Hypertension Medications and Allergies Home Medications Medication Instructions Recorded Confirmed Type Ergocalciferol [Vitamin D2 (1250 50,000 units PO MO 12/18/20 12/18/20 History Mcg = 71908 Iu)] Escitalopram Oxalate [Lexapro] 10 mg PO DAILY 12/18/20 12/18/20 History Glucosamine/Chondr Kline A Sod [Osteo 2 tab PO DAILY 12/18/20 12/18/20 History Bi-Flex Caplet] Naproxen Sodium [Aleve] 220 mg PO DAILY PRN 12/18/20 12/18/20 History Allergies Allergy/AdvReac Type Severity Reaction Status Date / Time bee venom protein (honey bee) Allergy Swelling Verified 12/18/20 13:49 Physical Exam Vitals: Vital Signs Temp Pulse Resp BP Pulse Ox 12/19/20 20:00 81 18 12/19/20 19:42 98.9 F 81 18 164/88 93 L 12/19/20 14:52 98.7 F 76 16 136/87 96 12/19/20 14:00 72 16 12/19/20 08:00 72 16 12/19/20 07:00 97.7 F 72 16 138/88 94 L 12/19/20 01:49 98.7 F 83 16 148/85 92 L Intake and Output 12/19/20 12/19/20 12/19/20 06:59 14:59 22:59 Intake Total 525 302 Balance 525 302 Intake: IV 525 Sodium Chloride 0.9% 1, 525 000 ml @ 75 mls/hr IV . [id number] ONE Rx#:[id number] Oral 300 Lipid 2 Sodium Chloride 0.9% 1, 2 000 ml @ 75 mls/hr IV . [id number] ONE Rx#:[id number] Other: Voiding Method Toilet Toilet # Voids 0 2 General: well nourished, well developed, NAD. Vitals reviewed Eyes: PERRL, EOMI, conjunctiva normal HENT: normocephalic, mucus membranes moist Neck: supple, no JVD Lungs: normal respiratory effort, no wheezes or rales CV: Regular rate and rhythm, no murmur. Peripheral pulses 2+ Abdomen: soft, nondistended, no organomegaly Lymph: no cervical or axillary LAD Skin: warm and dry. Neuro: A&Ox3, normal mood and affect Results CBC & Chem 7: 12/18/20 12:53 12/18/20 12:53 Thrombosis Risk Factor Assmnt - Choose All That Apply Any of the Below Risk Factors Present?: Yes Each Factor Represents 1 point: Age 41-60 years Other Risk Factors: No Other congenital or acquired thrombophilia - If yes, enter type in comment: No Thrombosis Risk Factor Assessment Total Risk Factor Score: 1 Thrombosis Risk Factor Assessment Level: Low Risk Assessment and Plan Plan: 1. Acute headache. CT negative for acute pathology. Consult Neurology for further evaluation. Check ESR, CRP. Start fioricet, magnesium, amitriptyline to treat for migraine 2. Essential hypertension. New diagnosis. Possibly contributing to headache. Start lisinopril 3. NIKKI. Continue lexapro
[2020-12-20] MEDS: methylPREDNISolone SOD SUCCI 125 MG/2 ML VIAL IV SCH ×2 (05:10→13:00)
[2020-12-20 08:37] VITALS: PULSE 86
[2020-12-20] MEDS: BUTA/APAP/CAF/COD 50-325-40-30 CAP PO PRN ×2 (08:58→13:00)
[2020-12-20] MEDS ORDERED: lisinopriL 10 MG TAB PO SCH (09:00)
[2020-12-20] MEDS: ESCITALOPRAM 10 MG TAB PO SCH (09:02)
--- NOTE | 2020-12-20 11:25 | MR ---
EXAMINATION TYPE: MR angio head wo con DATE OF EXAM: 12/20/2020 COMPARISON: NONE HISTORY: Daily headaches from back of head wrapping around to front TECHNIQUE: Time of flight images focusing on the [place] were performed without contrast.. 2-D and 3-D postprocessing imaging is performed on independent workstation. FINDINGS: There is codominant vertebral basilar system. Vertebral arteries are patent to basilar junc tion. Patent right posterior communicating artery. Hypoplastic left posterior communicating artery. N o significant focal stenosis or aneurysmal change in the posterior circulation. Anterior circulation shows close proximity of the anterior communicating arteries with suspected mcginn[place] nt small short length anterior communicating artery. No significant focal stenosis or aneurysm is see n. IMPRESSION: No aneurysm at level of [place] of [place].
--- NOTE | 2020-12-20 11:27 | MR ---
EXAMINATION TYPE: MR brain wo/w con DATE OF EXAM: 12/20/2020 COMPARISON: CT brain 2 days ago HISTORY: Daily headaches from back of head wrapping around to front TECHNIQUE: Multiplanar, multisequence images of the brain and brainstem is performed without and with IV contras t, utilizing 9 mL intravenous Gadavist . FINDINGS: Diffusion weighted images demonstrate no evidence of a recent infarct or other diffusion ab normality. The ventricular system and cisternal spaces are normal in size and appearance. The brain volume is age appropriate. Occasional focus of T2 hyperintensity throughout the white matter bilatera lly. Less than 5 scattered lesions. Lesions are nonspecific in appearance and distribution. Midline structures demonstrate normal morphology. The craniocervical junction appears within normal limits. Post contrast images demonstrate no abnormal enhancement. The dural venous sinuses appear pa tent. The visualized sinuses are clear and the globes are intact. 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 No suspicious enhancement or enhancing masses noted.
[2020-12-20 15:13] VITALS: BP 150/84; RESP 18; TEMP 98.3
--- NOTE | 2020-12-20 15:17 | P.DS ---
Providers Date of admission: 12/18/20 16:31 Expected date of discharge: 12/20/20 Attending physician: Juan Arrieta MD Consults: 12/18/20 15:47 Consult Physician Urgent Consulting Provider: Sherlyn Moreno Consult Reason/Comments: Acute headache Do you want consulting provider notified?: Yes Primary care physician: Kezia [facility]shi [facility] Course: Final Diagnoses: Acute headache, CT negative for acute pathology, possibly related to hypertension, newly diagnosed. Essential hypertension,lisinopril initiated NIKKI Dunia Whitaker is a 40 yo F with PMH of anxiety who presented to the ED with a 1 month history of daily headaches that have been acutely worsened over the past few days. She complains she woke with a severe headache that wrapped from the back of her head around to the front, due to the pain she came to the hospital. She complains of similar headaches in the last few weeks that have not been as intense and have fluctuated throughout the day. she does drink caffeine daily. On presentaiton she was hypertensive, labs unremarkable, CT head negative. Maintained on amitriptyline, magnesium, lisinopril, IV steroids and migraine cocktails with significant clinical improvement. Afebrile, ESR and WBC normal. Evaluated by neurology with recommendations noted and appreciated. Patient will be discharged home pending head MRA, Brain MRI, final DC recommendations in cluding steroid taper and clearance from neurology. Potential lumbar puncture discussed. The impression and plan of care has been dictated as directed. : I performed a history and examination of this patient, discussed the same with the dictator. I agree with the dictator's note ,documented as a scribe. Any additional findings or plans will be noted. Patient Condition at Discharge: Stable Plan - Discharge Summary Discharge Rx Participant: No New Discharge Prescriptions: New Amitriptyline HCl [Elavil] 50 mg PO HS #30 tab Butalb/Acetaminophen/Caffeine [Fioricet 50-300-40 mg Capsule] 1 - 2 cap PO Q4HR #24 cap lisinopriL [Zestril] 10 mg PO DAILY #30 tab Continue Glucosamine/Chondr Kline A Sod [Osteo Bi-Flex Caplet] 2 tab PO DAILY Escitalopram Oxalate [Lexapro] 10 mg PO DAILY Ergocalciferol [Vitamin D2 (1250 Mcg = 24002 Iu)] 50,000 units PO MO Discontinued Naproxen Sodium [Aleve] 220 mg PO DAILY PRN PRN Reason: Pain Discharge Medication List Ergocalciferol [Vitamin D2 (1250 Mcg = 95224 Iu)] 50,000 units PO MO 12/18/20 [History] Escitalopram Oxalate [Lexapro] 10 mg PO DAILY 12/18/20 [History] Glucosamine/Chondr Kline A Sod [Osteo Bi-Flex Caplet] 2 tab PO DAILY 12/18/20 [History] Amitriptyline HCl [Elavil] 50 mg PO HS #30 tab 12/20/20 [Rx] Butalb/Acetaminophen/Caffeine [Fioricet 50-300-40 mg Capsule] 1 - 2 cap PO Q4HR #24 cap 12/20/20 [Rx] lisinopriL [Zestril] 10 mg PO DAILY #30 tab 12/20/20 [Rx] Follow up Appointment(s)/Referral(s): Kezia Arrieta DO [Primary Care Provider] - 3 Days Patient Instructions/Handouts: Migraine Headache (GEN), Acute Headache (GEN)
--- NOTE | 2020-12-20 15:35 | P.PN ---
Progress Note - Text Progress Note Date: 12/20/20 Patient states her headache has much improved. It is now only 2/10. Denies any focal symptoms. Patient underwent MRI of the brain, which revealed some small vessel disease. MRA of the brain was normal with no aneurysm or stenosis. Patient does not want to undergo lumbar puncture. Patient's blood pressure running around 140 to 160s systolics. Patient probably has developed hypertension. Patient also drinks a pot of coffee, which comes out to be 12 cups per day. I think excessive caffeine is triggering the headaches, and elevating blood pressure. Impression: Headaches, most likely related to combination of accelerated blood pressure, and excessive caffeine intake. Patient was recommended to gradually wean down caffeine. She should not stop all caffeine abruptly. Start Inderal 20 mg twice a day for possible migraines and also to help with the blood pressure. Patient also has been started on lisinopril 10 mg daily. Patient denies asthma. Patient was recommended to follow up with her primary physician to optimize blood pressure control to target <130/80. Stop Solu-Medrol. No need for taper. May follow up with neurologist if her headache persists.
[2020-12-20] MEDS ORDERED: PROPRANOLOL 20 MG TAB PO SCH (21:00)
== END 2020-12-20 16:15 | disposition home or self-care (01) ==
LOC: EC 11:48 → 6NMEDSUR 16:31
PROVIDERS: ADMIT Family Medicine; ATTEND Family Medicine
DX: R51.9 Headache, unspecified (principal); I10 Essential (primary) hypertension; F17.200 Nicotine dependence, unspecified, uncomplicated; F32.9 Major depressive disorder, single episode, unspecified; F41.9 Anxiety disorder, unspecified; Z79.52 Long term (current) use of systemic steroids; Z79.899 Other long term (current) drug therapy; Z82.49 Family history of ischemic heart disease and other diseases of the circulatory system
CPT/HCPCS: 99285; 96376 ×2; 96361 ×2; 96375 ×2; 96374; 36415; 80053; 85652; 85025; 86140; 70450; 70544; 70553; G0378 ×3; J1200; J2765; J2930 ×2; J3360; J3475; J1885; J1170; A9585

== ENCOUNTER → 2022-09-01 | Outpatient (CLI) | payer BC ==
--- NOTE | 2022-09-02 17:36 | MM ---
Reason for Exam: Screening (asymptomatic). Baseline mammogram. Patient History: Menarche at age 12. First Full-Term at age 21. Hormonal Contraceptives, starting at age 15 for 11 years. Last menstrual period: 08/09/2022 Risk Values: Renee 5 year model risk: 0.6%. NCI Lifetime model risk: 8.8%. Prior Study Comparison: Patient's first Mammogram. No prior studies available for comparison. Tissue Density: There are scattered fibroglandular densities. Findings: Analyzed By CAD. No significant mass, suspicious microcalcification, or other discrete abnormality is seen. Overall Assessment: Negative, BI-RAD 1 Management: Screening Mammogram of both breasts in 1 year. 1. Patient should continue monthly self breast exams. 2. A clinical breast exam by your physician is recommended on an annual basis. 3. This exam should not preclude additional follow-up of suspicious palpable abnormalities. Electronically signed and approved by: Mary Holland M.D. Radiologist
== END | disposition home or self-care (01) ==
LOC: RADMAMWWP 13:09
PROVIDERS: ATTEND Family Medicine
DX: Z12.31 Encounter for screening mammogram for malignant neoplasm of breast (principal)
CPT/HCPCS: 77063; 77067

== ENCOUNTER → 2024-11-29 | Outpatient (CLI) | payer BC | END | disposition home or self-care (01) | LOC: LABPRL 15:44 | DX: R19.5 Other fecal abnormalities (principal) | CPT/HCPCS: 87045; 87046 ==